=== PATIENT | female | born 1990 | race Caucasian/White ===

== ENCOUNTER 2019-09-02 07:29 | Emergency (ER) | payer MEDICAID ==
[~2019-09-02] VITALS: Ht 170.2 cm; Wt 69.4 kg
[2019-09-02 08:07] VITALS: BP 124/82
[2019-09-02] MEDS ORDERED: ASPI1TAB31 PO (08:07)
--- NOTE | 2019-09-02 08:07 | NUR ---
PT CAME IN CO OF CHEST PAIN THAT STARTED AROUND 3 DAYS AGO. DESCRIBES PAIN SHARP ON LEFT SIDE. WE TO ANOTHER ED FOR CHEST PAIN 2-3 DAYS AGO AND THEY DIDNT DIAGNOSE HE3R WITH ANYTHING. PT ALSO CO OF NECK PAIN AND RIGHT EAR PAIN. PT IS HOOKED UP TO FOOD SANITARIAN. WARM BLANKET PROVIDED AND CALL LIGHT IN HAND
[2019-09-02 08:45] LABS: BASOPHILS # (AUTO) 0.03 x10^3/uL (0-0.1); BASOPHILS % (AUTO) 0 % (0-1); EOSINOPHILS # (AUTO) 0.07 x10^3/uL (0-0.4); EOSINOPHILS % (AUTO) 1 % (1-7); LYMPHOCYTES % (AUTO) 23 % (22-44); MD NO; MEAN CORPUSCULAR HEMOGLOBIN 31.3 pg (27.0-34.8); MEAN CORPUSCULAR HGB CONC 33.2 g/dL (32.4-35.8); MEAN PLATELET VOLUME 8.3 fL (7.4-10.4); MONOCYTES # (AUTO) 0.37 x10^3/uL (0.2-0.8); MONOCYTES % (AUTO) 4 % (2-9); NEUTROPHILS # (AUTO) 6.18 x10^3/uL (1.8-6.8); NEUTROPHILS % (AUTO) 71 % (42-75); PLATELET COUNT 204 x10^3/uL (130-400); RED BLOOD COUNT 4.56 x10^6/uL (3.82-5.3); RED CELL DISTRIBUTION WIDTH 12.8 % (9.6-15.2)
[2019-09-02 08:55] LABS: ALANINE AMINOTRANSFERASE 30 U/L (12-78); ALBUMIN 3.5 g/dL (3.4-5.0); ANION GAP 5 mmol/L (5-15); CALCIUM 8.3 mg/dL (8.5-10.1); CHLORIDE 110 mmol/L (98-107); CREATININE 0.74 mg/dL (0.55-1.02)
[2019-09-02 08:59] LABS: ALKALINE PHOSPHATASE 81 U/L (45-117); BILIRUBIN,TOTAL 0.2 mg/dL (0.2-1.0); TOTAL PROTEIN 6.8 g/dL (6.4-8.2); TROPONIN I < 0.015 ng/mL (0.000-0.045)
--- NOTE | 2019-09-02 09:04 | NUR ---
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 PT SAID SHE DIDNT HAVE TIME TO WAIT FOR HER LAB RESULTS. PT SIGNED AMA PAPERWORK AND LEFT.
== END 2019-09-02 09:07 | disposition left against medical advice (07) ==
LOC: ED 08:53
DX: H92.01 Otalgia, right ear (principal); R07.89 Other chest pain; M94.0 Chondrocostal junction syndrome [Tietze]; R59.0 Localized enlarged lymph nodes; Z98.890 Other specified postprocedural states
CPT/HCPCS: 36415; 71046; 80053; 84484; 84703; 85025; 93005; 99284

== ENCOUNTER 2020-11-08 10:03 | Emergency (ER) | payer MEDICAID ==
[~2020-11-08] VITALS: Ht 172.7 cm; Wt 72.1 kg
[~2020-11-08 10:03] MED LIST: ASPI1TAB31 PO
[2020-11-08 10:06] VITALS: BP 137/92
--- NOTE | 2020-11-08 10:14 | NUR ---
URINE CUP PROVIDED TO PATIENT FOR URINE SAMPLE.
--- NOTE | 2020-11-08 10:45 | NUR ---
ANIMAL CARE SERVICE WORKER: PT CALLED, NO ANSWER
--- NOTE | 2020-11-08 11:15 | NUR ---
ROOM SERVICE RUNNER; CALLED FOR ROOM, NO ANSWER
--- NOTE | 2020-11-08 11:44 | NUR ---
LINGO CLEANER: CALLED FOR ROOM, NO ANSWER
== END 2020-11-08 11:46 ==
LOC: ED 11:30
DX: R10.84 Generalized abdominal pain (principal); M54.5 Low back pain; Z53.21 Procedure and treatment not carried out due to patient leaving prior to being seen by health care provider

== ENCOUNTER 2021-05-15 14:08 | Emergency (ER) | payer MEDICAID ==
[~2021-05-15] VITALS: Ht 172.7 cm; Wt 64.0 kg
[2021-05-15 14:13] VITALS: BP 126/77
--- NOTE | 2021-05-15 14:21 | NUR ---
EKG COMPLETED IN TRIAGE.
--- NOTE | 2021-05-15 15:32 | NUR ---
no answer at [id number]
--- NOTE | 2021-05-15 15:56 | NUR ---
NAX2
--- NOTE | 2021-05-15 15:58 | NUR ---
NA X3
== END 2021-05-15 15:59 | disposition left against medical advice (07) ==
LOC: ED 15:45
DX: R07.89 Other chest pain (principal); R05 Cough
CPT/HCPCS: 93005; 99283